=== PATIENT | male | born 1955 | race Caucasian/White ===

== ENCOUNTER 2017-04-09 18:42 | Inpatient (IN) | payer MEDICAID ==
[~2017-04-09] VITALS: Ht 175.3 cm; Wt 63.5 kg
[2017-04-09] MEDS ORDERED: SODIUM CHLORIDE 0.9% 1,000 ML IV ONE (19:46)
[2017-04-09 20:21] LABS: BASOPHILS % 0.8 % (0.0-2.0); EOSINOPHILS % 0.9 % (0.0-5.0); HEMATOCRIT. 38.9 % (42.0-52.0); HEMOGLOBIN. 13.7 g/dL (14.0-18.0); LYMPHOCYTES % 22.1 % (20.0-50.0); MEAN CORPUSCULAR HEMOGLOBIN 31.1 pg (28.0-32.0); MEAN CORPUSCULAR VOLUME 88.7 fL (80.0-94.0); MEAN PLATELET VOLUME 7.9 fl (7.4-10.4); MONOCYTES % 6.3 % (2.0-8.0); NEUTROPHILS % 69.9 % (40.0-76.0); PLATELET 172 x1000/uL (130-400); RED BLOOD CELL COUNT 4.39 mill/uL (4.7-6.1); RED CELL DISTRIBUTION WIDTH 13.7 % (11.6-14.6)
[2017-04-09 20:29] LABS: BETA HYDROXYBUTYRATE 0.9 mMol/L (0.0-0.3); CARBON DIOXIDE 27 mEq/L (21-32); CHLORIDE 94 mEq/L (98-107); TROPONIN I < 0.02 ng/mL (0.00-0.04)
[2017-04-09 20:37] LABS: BG BASE EXCESS 2.7 mmol/L (-2.0-2.0); BG CARBOXYHEMOGLOBIN 12.1 % (0.5-1.5); BG DEOXYHEMOGLOBIN 2.4 % (0.0-5.0); BG FRACTION INSPIRED OXYGEN 21; BG HCO3 ACT 26.8 mmol/L (22.0-26.0); BG METHEMOGLOBIN 0.1 % (0.0-1.5); BG OXYGEN SATURATION 97.3 % (92.0-98.5); BG OXYHEMOGLOBIN 85.4 % (94.0-97.0); BG PCO2 39.6 mmHg (35.0-45.0); BG PH 7.449 (7.350-7.450); BG PO2 94.8 mmHg (75.0-100.0); BG SAMPLE SITE RIGHT BRACHIAL; BG TOTAL HEMOGLOBIN 13.2 g/dL (12.0-18.0); BG VENT MODE ROOM AIR
[2017-04-09 23:10] LABS: CREATINE KINASE 67 IU/L (39-308)
[2017-04-10 04:00] VITALS: BP 100/68
[2017-04-10 04:30] VITALS: BP 100/68
[2017-04-10] MEDS ORDERED: DEXTROSE 50% WATER 50ML SYRINGE IV PRN ×2 (06:15→11:00)
[2017-04-10] MEDS ORDERED: BLOOD SUGAR DIAGNOSTIC STRIP TEST SCH (07:20)
[2017-04-10] MEDS ORDERED: INSULIN LISPRO 100 UNITS/ML SUBCUT SCH (07:50)
[2017-04-10 08:00] VITALS: BP 91/62
[2017-04-10] MEDS ORDERED: POTASSIUM CHLORIDE 20MEQ TABLET SR PO NR (11:00)
[2017-04-10 12:00] VITALS: BP 107/68
[2017-04-10] MEDS: INSULIN LISPRO 100 UNITS/ML SUBCUT SCH ×3 (12:17→22:08)
[2017-04-10] MEDS: HYDROCODONE/ACETAMINOPHEN 5/325MG TABLET PO PRN ×3 (12:18→22:32)
[2017-04-10] MEDS: BLOOD SUGAR DIAGNOSTIC STRIP TEST SCH ×3 (12:18→21:46)
[2017-04-10 16:00] VITALS: BP 98/72
[2017-04-10 18:41] LABS: CLARITY URINE CLEAR (CLEAR); COLOR URINE YELLOW (YELLOW); GLUCOSE URINE 3+ (NEGATIVE); KETONES URINE NEGATIVE (NEGATIVE); LEUKOCYTE ESTERASE URINE NEGATIVE (NEGATIVE); NITRITE URINE NEGATIVE (NEGATIVE); OCCULT BLOOD URINE TRACE (NEGATIVE); PROTEIN URINE NEGATIVE (NEGATIVE); SPECIFIC GRAVITY URINE 1.018 (1.005-1.030); UROBILINOGEN URINE 0.2 E.U./dL (0.2-1.0)
[2017-04-10 19:39] LABS: *AMPHETAMINES SCREEN URINE NEGATIVE (NEGATIVE); *BARBITURATES SCREEN URINE NEGATIVE (NEGATIVE); *BENZODIAZEPINES SCREEN URINE NEGATIVE (NEGATIVE); *COCAINE SCREEN URINE NEGATIVE (NEGATIVE); CANNABINOID URINE SCREEN NEGATIVE (NEGATIVE); METHADONE URINE SCREEN NEGATIVE (NEGATIVE); OPIATES URINE SCREEN PRESUMTIVE POSITIVE (NEGATIVE); PHENCYCLIDINE URINE SCREEN NEGATIVE (NEGATIVE)
[2017-04-10 20:00] VITALS: BP 99/65
[2017-04-10] MEDS ORDERED: INSULIN DETEMIR UD 100 UNITS/ML SYR SUBCUT SCH (22:00)
[2017-04-10] MEDS: INSULIN DETEMIR UD 100 UNITS/ML SYR SUBCUT SCH (22:10)
[2017-04-11] VITALS: BP 91/64
[2017-04-11 04:00] VITALS: BP 117/77
[2017-04-11] MEDS: HYDROCODONE/ACETAMINOPHEN 5/325MG TABLET PO PRN ×3 (05:01→21:59)
[2017-04-11 05:40] LABS: CARBON DIOXIDE 30 mEq/L (21-32); CHLORIDE 102 mEq/L (98-107)
[2017-04-11 06:29] LABS: BASOPHILS % 0.5 % (0.0-2.0); EOSINOPHILS % 1.9 % (0.0-5.0); HEMATOCRIT. 39.6 % (42.0-52.0); HEMOGLOBIN. 13.6 g/dL (14.0-18.0); LYMPHOCYTES % 41.2 % (20.0-50.0); MEAN CORPUSCULAR HEMOGLOBIN 30.9 pg (28.0-32.0); MEAN CORPUSCULAR VOLUME 89.8 fL (80.0-94.0); MEAN PLATELET VOLUME 8.4 fl (7.4-10.4); MONOCYTES % 7.9 % (2.0-8.0); NEUTROPHILS % 48.5 % (40.0-76.0); PLATELET 164 x1000/uL (130-400); RED BLOOD CELL COUNT 4.41 mill/uL (4.7-6.1)
[2017-04-11] MEDS: BLOOD SUGAR DIAGNOSTIC STRIP TEST SCH ×4 (06:32→21:10)
[2017-04-11] MEDS: INSULIN LISPRO 100 UNITS/ML SUBCUT SCH ×4 (07:50→22:08)
[2017-04-11 08:00] VITALS: BP 83/56
[2017-04-11] MEDS: INSULIN DETEMIR UD 100 UNITS/ML SYR SUBCUT SCH ×2 (10:32→22:09)
[2017-04-11 12:00] VITALS: BP 97/63
[2017-04-11] MEDS ORDERED: SODIUM CHLORIDE 0.9% 1000ML BAG (SEPSIS BOLUS) IV ONE (15:00)
[2017-04-11] MEDS ORDERED: SODIUM CHLORIDE 0.9% 500ML IV NR (15:00)
[2017-04-11 16:00] VITALS: BP 96/66
[2017-04-11 20:00] VITALS: BP 110/74
[2017-04-12] VITALS: BP 101/61
[2017-04-12 04:00] VITALS: BP 110/74
[2017-04-12 06:59] LABS: CARBON DIOXIDE 32 mEq/L (21-32); CHLORIDE 101 mEq/L (98-107)
[2017-04-12] MEDS: HYDROCODONE/ACETAMINOPHEN 5/325MG TABLET PO PRN ×3 (07:06→21:09)
[2017-04-12] MEDS: BLOOD SUGAR DIAGNOSTIC STRIP TEST SCH ×4 (07:07→21:04)
[2017-04-12 07:25] LABS: BASOPHILS % 0.6 % (0.0-2.0); HEMATOCRIT. 35.6 % (42.0-52.0); HEMOGLOBIN. 12.3 g/dL (14.0-18.0); LYMPHOCYTES % 34.7 % (20.0-50.0); MEAN CORPUSCULAR HEMOGLOBIN 30.9 pg (28.0-32.0); MEAN CORPUSCULAR VOLUME 89.6 fL (80.0-94.0); MEAN PLATELET VOLUME 8.4 fl (7.4-10.4); MONOCYTES % 9.3 % (2.0-8.0); NEUTROPHILS % 53.4 % (40.0-76.0); PLATELET 158 x1000/uL (130-400); RED BLOOD CELL COUNT 3.97 mill/uL (4.7-6.1)
[2017-04-12] MEDS: INSULIN LISPRO 100 UNITS/ML SUBCUT SCH ×4 (07:37→21:00)
[2017-04-12 08:00] VITALS: BP 111/72
[2017-04-12] MEDS: INSULIN DETEMIR UD 100 UNITS/ML SYR SUBCUT SCH ×2 (10:25→21:31)
[2017-04-12 12:00] VITALS: BP 111/72
[2017-04-12 16:00] VITALS: BP 110/74
[2017-04-12 20:00] VITALS: BP 108/67
[2017-04-13] VITALS: BP 110/74
[2017-04-13 04:00] VITALS: BP 108/63
[2017-04-13] MEDS: HYDROCODONE/ACETAMINOPHEN 5/325MG TABLET PO PRN ×3 (06:23→18:14)
[2017-04-13] MEDS: BLOOD SUGAR DIAGNOSTIC STRIP TEST SCH ×4 (06:25→21:21)
[2017-04-13 07:19] LABS: BASOPHILS % 0.8 % (0.0-2.0); HEMATOCRIT. 37.6 % (42.0-52.0); LYMPHOCYTES % 32.6 % (20.0-50.0); MEAN CORPUSCULAR VOLUME 89.8 fL (80.0-94.0); MEAN PLATELET VOLUME 8.9 fl (7.4-10.4); MONOCYTES % 9.1 % (2.0-8.0); NEUTROPHILS % 55.5 % (40.0-76.0); PLATELET 180 x1000/uL (130-400); RED BLOOD CELL COUNT 4.18 mill/uL (4.7-6.1); RED CELL DISTRIBUTION WIDTH 14.4 % (11.6-14.6)
[2017-04-13 07:24] LABS: CARBON DIOXIDE 31 mEq/L (21-32); CHLORIDE 100 mEq/L (98-107)
[2017-04-13] MEDS: INSULIN LISPRO 100 UNITS/ML SUBCUT SCH ×4 (07:50→21:43)
[2017-04-13 08:00] VITALS: BP 97/64
[2017-04-13] MEDS: INSULIN DETEMIR UD 100 UNITS/ML SYR SUBCUT SCH ×2 (10:00→21:42)
[2017-04-13 12:00] VITALS: BP 107/70
[2017-04-13] MEDS ORDERED: DIPHENHYDRAMINE 50MG/ML VIAL IV PRN (15:15)
[2017-04-13 16:00] VITALS: BP 97/66
[2017-04-13] MEDS: DIPHENHYDRAMINE 25MG CAPSULE PO PRN ×2 (16:16→21:44)
[2017-04-13 20:00] VITALS: BP 113/74
[2017-04-13] MEDS: LORAZEPAM 0.5MG TABLET PO PRN (21:44)
[2017-04-14] VITALS: BP 110/76
[2017-04-14 04:00] VITALS: BP 125/74
[2017-04-14] MEDS: BLOOD SUGAR DIAGNOSTIC STRIP TEST SCH ×4 (06:53→21:48)
[2017-04-14] MEDS: INSULIN LISPRO 100 UNITS/ML SUBCUT SCH ×4 (07:50→23:52)
[2017-04-14 08:00] VITALS: BP 115/57
[2017-04-14 09:47] LABS: BASOPHILS % 0.5 % (0.0-2.0); EOSINOPHILS % 1.3 % (0.0-5.0); HEMATOCRIT. 37.8 % (42.0-52.0); HEMOGLOBIN. 12.9 g/dL (14.0-18.0); LYMPHOCYTES % 16.5 % (20.0-50.0); MEAN CORPUSCULAR VOLUME 90.8 fL (80.0-94.0); MEAN PLATELET VOLUME 8.3 fl (7.4-10.4); MONOCYTES % 9.1 % (2.0-8.0); NEUTROPHILS % 72.6 % (40.0-76.0); PLATELET 150 x1000/uL (130-400); RED BLOOD CELL COUNT 4.17 mill/uL (4.7-6.1); RED CELL DISTRIBUTION WIDTH 14.4 % (11.6-14.6)
[2017-04-14 09:53] LABS: CARBON DIOXIDE 28 mEq/L (21-32); CHLORIDE 101 mEq/L (98-107)
[2017-04-14] MEDS: INSULIN DETEMIR UD 100 UNITS/ML SYR SUBCUT SCH ×2 (10:00→23:52)
[2017-04-14 12:00] VITALS: BP 96/65
[2017-04-14] MEDS: DIPHENHYDRAMINE 25MG CAPSULE PO PRN (13:31)
[2017-04-14] MEDS: HYDROCODONE/ACETAMINOPHEN 5/325MG TABLET PO PRN ×2 (15:43→21:48)
[2017-04-14 16:00] VITALS: BP 101/70
[2017-04-14 20:00] VITALS: BP 110/73
[2017-04-15] VITALS: BP 121/76
[2017-04-15] MEDS: LORAZEPAM 0.5MG TABLET PO PRN
[2017-04-15] MEDS: HYDROCODONE/ACETAMINOPHEN 5/325MG TABLET PO PRN ×4 (03:44→19:00)
[2017-04-15 04:00] VITALS: BP 124/72
[2017-04-15 06:16] LABS: BASOPHILS % 0.8 % (0.0-2.0); EOSINOPHILS % 2.1 % (0.0-5.0); HEMATOCRIT. 35.1 % (42.0-52.0); HEMOGLOBIN. 12.1 g/dL (14.0-18.0); LYMPHOCYTES % 21.7 % (20.0-50.0); MEAN CORPUSCULAR HEMOGLOBIN 30.8 pg (28.0-32.0); MEAN CORPUSCULAR VOLUME 89.7 fL (80.0-94.0); MEAN PLATELET VOLUME 8.4 fl (7.4-10.4); MONOCYTES % 9.7 % (2.0-8.0); NEUTROPHILS % 65.7 % (40.0-76.0); PLATELET 165 x1000/uL (130-400); RED BLOOD CELL COUNT 3.91 mill/uL (4.7-6.1); RED CELL DISTRIBUTION WIDTH 14.2 % (11.6-14.6)
[2017-04-15 06:28] LABS: CARBON DIOXIDE 28 mEq/L (21-32); CHLORIDE 104 mEq/L (98-107)
[2017-04-15] MEDS: BLOOD SUGAR DIAGNOSTIC STRIP TEST SCH ×4 (06:44→21:10)
[2017-04-15] MEDS: INSULIN LISPRO 100 UNITS/ML SUBCUT SCH ×4 (07:50→21:19)
[2017-04-15 08:00] VITALS: BP 98/66
[2017-04-15] MEDS: INSULIN DETEMIR UD 100 UNITS/ML SYR SUBCUT SCH ×2 (11:17→21:19)
[2017-04-15 12:00] VITALS: BP 98/62
[2017-04-15 16:00] VITALS: BP 96/69
[2017-04-15 20:00] VITALS: BP 121/78
[2017-04-15] MEDS: DIPHENHYDRAMINE 25MG CAPSULE PO PRN (21:08)
[2017-04-15] MEDS ORDERED: LORAZEPAM 0.5MG TABLET PO PRN (21:15)
[2017-04-16] VITALS: BP 98/66
[2017-04-16] MEDS: HYDROCODONE/ACETAMINOPHEN 5/325MG TABLET PO PRN ×3 (02:09→17:04)
[2017-04-16 04:00] VITALS: BP 99/62
[2017-04-16] MEDS: DIPHENHYDRAMINE 25MG CAPSULE PO PRN ×2 (06:27→11:15)
[2017-04-16] MEDS: BLOOD SUGAR DIAGNOSTIC STRIP TEST SCH ×4 (06:30→20:57)
[2017-04-16] MEDS: INSULIN LISPRO 100 UNITS/ML SUBCUT SCH ×4 (07:50→20:59)
[2017-04-16 08:00] VITALS: BP 99/64
[2017-04-16] MEDS: INSULIN DETEMIR UD 100 UNITS/ML SYR SUBCUT SCH ×2 (10:39→21:01)
[2017-04-16 12:00] VITALS: BP 102/68
[2017-04-16 16:00] VITALS: BP 109/80
[2017-04-16 20:00] VITALS: BP 100/65
[2017-04-17] VITALS (8 sets, daily range): BP systolic 90–144; BP diastolic 59–88
[2017-04-17] MEDS: BLOOD SUGAR DIAGNOSTIC STRIP TEST SCH ×4 (06:37→21:28)
[2017-04-17] MEDS: INSULIN LISPRO 100 UNITS/ML SUBCUT SCH ×4 (07:50→22:25)
[2017-04-17] MEDS: INSULIN DETEMIR UD 100 UNITS/ML SYR SUBCUT SCH ×2 (10:31→22:00)
[2017-04-17] MEDS: HYDROCODONE/ACETAMINOPHEN 5/325MG TABLET PO PRN ×2 (11:33→21:15)
== END 2017-04-17 23:00 | DRG 420 ==
LOC: ER 19:45 → 6EST 23:57 → ENRESERV 04-10 00:14
PROVIDERS: ADMIT Internal Medicine; ATTEND Internal Medicine
DX: E11.00 Type 2 diabetes mellitus with hyperosmolarity without nonketotic hyperglycemic-hyperosmolar coma (NKHHC) (principal); E11.40 Type 2 diabetes mellitus with diabetic neuropathy, unspecified; E44.1 Mild protein-calorie malnutrition; E87.6 Hypokalemia; E86.0 Dehydration; E11.65 Type 2 diabetes mellitus with hyperglycemia; D64.9 Anemia, unspecified; E78.00 Pure hypercholesterolemia, unspecified; E78.5 Hyperlipidemia, unspecified; I10 Essential (primary) hypertension; Z60.2 Problems related to living alone; M79.671 Pain in right foot; M79.672 Pain in left foot; K08.89 Other specified disorders of teeth and supporting structures; Z68.20 Body mass index [BMI] 20.0-20.9, adult; L98.499 Non-pressure chronic ulcer of skin of other sites with unspecified severity; L97.919 Non-pressure chronic ulcer of unspecified part of right lower leg with unspecified severity
CPT/HCPCS: 36415; 36600; 71010; 80048; 80053; 80305; 81001; 82010; 82375; 82550; 82805; 82947; 82962; 84484; 85025; 93005; 93970; 96360; 97116; 97162; 97166; 97530; 97535; 99285; C1893; G0482; J1200; J1815; J7030; J7040; J7042; Q0163

== ENCOUNTER 2018-11-05 02:12 | Emergency (ER) | payer MEDICAID ==
[~2018-11-05] VITALS: Ht 170.2 cm; Wt 73.0 kg
[2018-11-05] MEDS ORDERED: SODIUM CHLORIDE 0.9% 1,000 ML IV ONE (06:14)
[2018-11-05 06:23] LABS: CHLORIDE 104 mEq/L (98-107)
[2018-11-05] MEDS ORDERED: IBUPROFEN 600MG TABLET PO ONE (06:30)
[2018-11-05] MEDS ORDERED: DIPHENHYDRAMINE 50MG/ML VIAL IV ONE (06:45)
[2018-11-05 07:15] LABS: INR 1.1; PROTHROMBIN TIME 11.4 sec (9.1-11.1)
[2018-11-05 07:16] LABS: BASOPHILS % 0.4 % (0.0-2.0); EOSINOPHILS % 11.4 % (0.0-5.0); HEMATOCRIT. 34.4 % (42.0-52.0); HEMOGLOBIN. 11.4 g/dL (14.0-18.0); LYMPHOCYTES % 16.2 % (20.0-50.0); MEAN CORPUSCULAR HEMOGLOBIN 28.3 pg (28.0-32.0); MEAN CORPUSCULAR VOLUME 85.4 fL (80.0-94.0); PLATELET 234 x1000/uL (130-400); RED BLOOD CELL COUNT 4.02 mill/uL (4.7-6.1); RED CELL DISTRIBUTION WIDTH 13.9 % (11.6-14.6)
[2018-11-05 10:45] LABS: CLARITY URINE CLEAR (CLEAR); COLOR URINE YELLOW (YELLOW); KETONES URINE NEGATIVE (NEGATIVE); LEUKOCYTE ESTERASE URINE NEGATIVE (NEGATIVE); NITRITE URINE NEGATIVE (NEGATIVE); OCCULT BLOOD URINE NEGATIVE (NEGATIVE); PROTEIN URINE NEGATIVE (NEGATIVE); SPECIFIC GRAVITY URINE 1.005 (1.005-1.030); UROBILINOGEN URINE 0.2 E.U./dL (0.2-1.0)
[2018-11-05 11:50] VITALS: BP 108/63
== END 2018-11-05 12:14 | disposition home or self-care (01) ==
LOC: ER 02:12
DX: M79.662 Pain in left lower leg (principal); M79.661 Pain in right lower leg; E11.9 Type 2 diabetes mellitus without complications; I10 Essential (primary) hypertension; F17.200 Nicotine dependence, unspecified, uncomplicated; Z79.4 Long term (current) use of insulin
CPT/HCPCS: 36415; 71045; 80048; 81003; 82010; 85025; 85610; 96374; 99284; J1200; J7030